=== PATIENT | female | born 1945 | race Caucasian/White ===

== ENCOUNTER 2016-07-31 17:33 | Emergency (ER) | payer MEDICARE ==
[2016-07-31 15:31] LABS: BASOPHILS 0.5 %; BASOPHILS ABSOLUTE 0.03 10/3/uL (0.0-0.16); EOSINOPHILS 2.8 %; EOSINOPHILS ABSOLUTE 0.18 10/3/uL (0.0-0.53); ER CBC TAT 0 Hrs 09 Mins; HEMATOCRIT 39.4 % (36.0-48.0); HEMOGLOBIN 13.2 g/dL (12.0-16.0); IMMATURE GRANULOCYTES 0.2 %; IMMATURE GRANULOCYTES ABSOLUTE 0.01 10/3/uL (0.0-0.11); LYMPHOCYTES 8.2 %; LYMPHOCYTES ABSOLUTE 0.53 10/3/uL (0.67-4.30); MANUAL DIFF NO %; MEAN CORPUS HGB CONC 33.5 g/dL (32.0-36.0); MEAN CORPUSCULAR HEMOGLOB 29.3 pg (26.0-34.0); MEAN CORPUSCULAR VOLUME 87.4 fL (80-100); MEAN PLATELET VOLUME 10.8 fL (9.2-13.0); MONOCYTES 9.3 %; NEUTROPHILS ABSOLUTE 5.13 10/3/uL (2.02-8.40); PLATELET COUNT 133 10/3/uL (150-400); RBC DISTRIBUTION WIDTH 16.8 % (12.0-16.0); RED CELL COUNT 4.51 10/6/uL (4.0-5.6); WHITE BLOOD CELLS 6.5 10/3/uL (4.5-10.5)
[2016-07-31 15:38] LABS: INTERNATIONAL NORMAL RATI 1.2 UNITS (-); PARTIAL THROMBO TIME 35.6 SEC (22.5-37.2)
[2016-07-31 15:44] LABS: PROTIME (NOT ORD) 15.2 SEC (12.0-14.5)
[2016-07-31 15:46] LABS: BUN (BLOOD UREA NITROGEN) 32 MG/DL (6-23); CALCIUM, SERUM 9.6 MG/DL (8.5-10.4); CHEST PAIN PROFILE TAT 0 Hrs 24 Mins; CHLORIDE, SERUM 101 MMOL/L (96-112); CO2 (CARBON DIOXIDE) 29 MMOL/L (24-34); CREATININE 1.77 MG/DL (0.55-1.02); GFR AFRICAN AMERICAN 32 ML/MIN (>=60); GFR NON AFRICAN AMERICAN 28 ML/MIN (>=60); GLUCOSE, SERUM 123 MG/DL (60-99); POTASSIUM, SERUM 4.2 MMOL/L (3.5-5.3); SODIUM, SERUM 138 MMOL/L (135-148); TROPONIN I 0.07 NG/ML (<0.05)
[~2016-07-31 17:33] MED LIST: ALTA5 PO; ASAB PO; ATV.5 PO; BUM1 PO; C5 PO; CALTRA600D PO; CENTRUM PO; CENTRUM TAB1 TAB PO; COREG12 PO; COREG25 PO; KLOR-CON M2020 MEQ PO; L40 PO; LIPITOR80 MG PO; LISINOPRIL40 MG PO; NITROQUICK0.4 MG SL; NORV10 PO; NORV5 PO; SPIRO25 PO; TOPXL50 PO; VICODINTAB PO
[2016-11-13] MEDS ORDERED: ELIQUIS 5 MG TAB5 MG PO (14:50)
[2016-11-13] MEDS ORDERED: LIPITOR80 MG PO (14:52)
[2016-11-13] MEDS ORDERED: ISORDIL20 PO (14:53)
[2016-11-13] MEDS ORDERED: Z100 PO (14:53)
[2016-11-13] MEDS ORDERED: SACU1TAB PO (14:53)
[2016-11-13] MEDS ORDERED: SPIRO25 PO (14:54)
[2016-11-13] MEDS ORDERED: DEMA20 PO (14:54)
[2016-11-13] MEDS ORDERED: COREG25 PO (14:54)
[2016-11-13] MEDS ORDERED: ASAB PO (14:55)
[2016-11-13] MEDS ORDERED: APRES25 PO (14:55)
[2016-11-13] MEDS ORDERED: T PO (14:58)
[2016-11-13] MEDS ORDERED: NITROQUICK0.4 MG SL (14:59)
[2016-11-17] MEDS ORDERED: SPIRO25 PO (15:31)
== END 2016-07-31 17:38 | disposition home or self-care (01) ==
LOC: ER 17:33
PROVIDERS: Emergency Medicine
DX: I13.0 Hypertensive heart and chronic kidney disease with heart failure and stage 1 through stage 4 chronic kidney disease, or unspecified chronic kidney disease (principal); I50.9 Heart failure, unspecified; N18.9 Chronic kidney disease, unspecified; Z95.810 Presence of automatic (implantable) cardiac defibrillator; Z95.1 Presence of aortocoronary bypass graft; Z87.891 Personal history of nicotine dependence; Z79.82 Long term (current) use of aspirin; Z79.01 Long term (current) use of anticoagulants; Z79.891 Long term (current) use of opiate analgesic; Z79.899 Other long term (current) drug therapy
CPT/HCPCS: 71020; 80048; 83735; 83880; 84484; 85025; 85610; 85730; 93005; 96374; 99285

== ENCOUNTER 2016-08-06 22:27 | Inpatient (IN) | payer MEDICARE ==
--- NOTE | ~2016-08-06 | CN ---
Consultation Report [facility] [address] [place]. [address] NAME: JUNIOR SIMMONS : 41 STATUS : ADM IN PAT#: [id number] AGE: 71 ADM/REG DATE : 08/07/16 MR#: [id number] REPORT SERV DATE: 08/07/16 DICTATED BY: NEEL AGUILERA DATE: 08/07/16 REPORT STATUS : Draft TRANSCRIBED BY: MODL DATE: 08/07/16 DATE OF CONSULTATION: 08/07/2016 REASON FOR CONSULTATION: Acute kidney injury on chronic kidney disease stage 3. HISTORY OF PRESENT ILLNESS: This is a very pleasant 71-year-old female patient, followed in our office by Dr. Scar Jaimes. Baseline creatinine appears to be approximately 1.5 to 1.8 with most recent followup on 07/11/2016 with creatinine at that point at 1.8 with a GFR of 30 mL/minute. She is admitted to the Hospitalist Service with a complaint of exacerbation of CHF with an LVEF of 20%-25% and acute exacerbation of CHF. We were asked to evaluate the patient in light of an acute kidney injury on chronic kidney disease with creatinine today at 1.94 with a peak at 2.14 on entry. The patient is sitting at bedside this afternoon. Family is present during evaluation. She denies current chest pain, is noticeably short of breath during conversation, but not overtly tachypneic. Denies chest pain. No nausea, vomiting, or diarrhea. PAST MEDICAL HISTORY: Positive for chronic kidney disease stage 3, baseline creatinine 1.5 to 1.8, followed by Dr. Scar Jaimes. Last creatinine on 07/11/2016 at 1.8. GFR 30 mL/minutes with a [id number] ratio at 1.179 g. History is also positive for chronic systolic and diastolic congestive heart failure with ejection fraction of 20%-25% noted from 2013, coronary artery disease with prior CABG, AICD, biventricular pacemaker insertion, chronic kidney disease as above, hypertension, hyperlipidemia, peripheral artery disease, status post presumed femoral-popliteal bypass by Dr. Everett, mitral valve regurgitation, status post bioprosthetic valve and valvular replacement. PAST SURGICAL HISTORY: Includes CABG, mitral valve replacement, Maze procedure, AICD procedure, and femoral-popliteal bypass. ALLERGIES: SHE LISTS NO KNOWN DRUG ALLERGIES. ACTIVE HOME MEDICATIONS: Include the following: Allopurinol 300 mg p.o. daily, Norvasc 10 mg p.o. daily, Lipitor 80 mg p.o. at bedtime, Coreg 25 mg p.o. b.i.d., Devika 180 mg p.o. daily, Lasix 40 mg daily, spironolactone 25 mg daily. SOCIAL HISTORY: No ETOH. No illicit drugs. Remote history of tobacco use. FAMILY HISTORY: Noncontributory and not reviewed during this consultation and dictation. PHYSICAL EXAMINATION: VITAL SIGNS: Blood pressure 102/58, temperature 97.1, respiratory rate is 16, 82 beats per minute and regular heart rate. GENERAL: She is awake, alert, oriented x3, in no acute distress. HEENT: Normocephalic and atraumatic. Normal ocular movements. No scleral icterus or conjunctival pallor is appreciated. NECK: Supple without thyromegaly. No JVD or mass. Consultation Report [address] [place]. [address] NAME: JUNIOR SIMMONS : 41 STATUS : ADM IN [facility]#: [id number] AGE: 71 ADM/REG DATE : 08/07/16 MR#: [id number] REPORT SERV DATE: 08/07/16 DICTATED BY: NEEL AGUILERA DATE: 08/07/16 REPORT STATUS : Draft TRANSCRIBED BY: MELODY DATE: 08/07/16 CHEST: Positive S1 and S2. No rubs or gallops. LUNGS: Diminished throughout, normal expansion and effort bilaterally without rhonchi or wheezes noted on examination. GI: Positive bowel sounds in all four quadrants. No appreciable mass or tenderness. : Examination is deferred. EXTREMITIES: Positive pulses to all four extremities. Noted 2+ bilateral lower extremity edema. On examination, she has pulses to all four extremities, they are intact. NEUROLOGIC: She appears to be grossly intact. Nonfocal. SKIN: Warm, dry, and intact to visualized surfaces. No rash, lesions, or ecchymosis. PSYCH: She appears to be appropriate with mood and affect. LABORATORY DATA: Pertinent laboratories and imaging to this evaluation are as follows: Sodium 139, potassium 4.0, chloride 104, CO2 of 28, BUN 47, creatinine 1.94. Reflected GFR 25 mL/minute. Glucose of 99. Calcium 9.1. CPK 104, CK-MB 2.2. Troponin 0.08. White blood cell count of 6.9, RBC 4.27, hemoglobin 12.2, hematocrit 37.2, platelets at 123. Most recent B-natriuretic peptide 0.1. Most recent pro-time INR are 16.3, 1.3. Chest PA and lateral shows a stable chest x-ray. Lung magallanes are hyperaerated consistent with COPD, small pleural effusion with blunting of the right costophrenic angle, and bilateral apical thickening. Bones are osteopenic. IMPRESSION AND PLAN: This is a chronic kidney disease stage 3 patient, acute exacerbation of congestive heart failure with questionable component of exacerbation of chronic obstructive pulmonary disease, not maintained on home oxygen supplementation with smoking history as listed above. She does have an elevated B-natriuretic peptide and has been diuresed and shows some improvement in her respiratory status since admission. She continues to have significant lower extremity edema on evaluation today. There are plans to progress her to torsemide 40 mg p.o. in the a.m. according to Cardiology's current plan of care. Considering her continued lower extremity edema, would provide further diuresis with IV Bumex this evening with efforts in place to place her on p.o. torsemide with p.o. Aldactone in the morning. Considering the bilateral lower extremity edema being significant and acute, would rule out DVT to bilateral lower extremities. Fluid and sodium restrictions are in place. The patient states that she is normally adherent to this at home, but has had some difficulty with fluid restriction of late as she is often in her garden outdoors. There is some thought that she may possibly benefit from addition of ARB, but she does have a unilateral kidney and I would be hesitant to use this as adjunctive therapy considering her unilateral kidney and noted chronic kidney disease stage 3. Would test her oxygen level without oxygen supplementation as she may benefit currently from home oxygen supplementation and this may be at some level a concomitant exacerbation of chronic obstructive pulmonary disease with her exacerbation of congestive heart failure in favor of place her on torsemide tomorrow. Lasix dosing appears at this point to be ineffective. We will quantify her urinary protein excretion and place her on strict Is and Os. It is unclear at this point how accurate her Is and Os have been. Creatinine at 1.9 is near her previous baseline and she will likely show a fluctuating creatinine based on her diuretic burden. Further modification of treatment plan may be made based on clinical presentation, patient laboratory results, further consultation with renal attending. We appreciate consultation. Consultation Report [facility] [address] [place]. [address] NAME: JUNIOR SIMMONS : 41 STATUS : ADM IN PAT#: [id number] AGE: 71 ADM/REG DATE : 08/07/16 MR#: [id number] REPORT SERV DATE: 08/07/16 DICTATED BY: NEEL AGUILERA. DATE: 08/07/16 REPORT STATUS : Draft TRANSCRIBED BY: MELODY DATE: 08/07/16 We are glad to follow this patient with you. DICTATED BY: Martinez Manzano NP JR/MELODY Neel Aguilera M.D. / [id number] CC: Marissa Jimenez M.D.
--- NOTE | ~2016-08-06 | HP ---
History And Physical [facility] [address] [place]. [address] NAME: JUNIOR HALL : 41 STATUS : ADM IN PAT#: [id number] AGE: 71 ADM/REG DATE : 08/07/16 MR#: [id number] REPORT SERV DATE: 08/07/16 DICTATED BY: TITI ORONA DATE: 08/07/16 REPORT STATUS : Draft TRANSCRIBED BY: MODL DATE: 08/07/16 DATE OF ADMISSION: 08/06/2016 POINT OF ENTRY: [facility] Emergency Department. PRIMARY CARE PHYSICIAN: Jose Cruz Cobb M.D. PRIMARY CIVIL TRANSPORTATION ENGINEER: Tio Watkins M.D., [facility], [facility]. PRIMARY INVENTORY CONTROL ASSISTANT: Dr. Jaimes. CHIEF COMPLAINT: Lower extremity edema and shortness of breath. HISTORY OF PRESENT ILLNESS: Ms Hall is a 71-year-old female with a history of chronic systolic congestive heart failure with ejection fraction of 20-25%, chronic kidney disease stage 3, hypertension, hyperlipidemia, and peripheral arterial disease, who presents to the emergency department with reports of progressive worsening lower extremity edema. The patient was seen in our ER on 07/31/2016 for similar complaints of shortness of breath, primarily lower extremity edema. At that time, her BNP level was noted to be elevated at 1980. Chest x-ray was fairly clear. She was given an unknown dose of IV Lasix and discharged to home with instructions to double up her Lasix from 40 mg daily to a total of 80 mg daily for five days and then to decrease it down to 60 mg daily until she follows up with her primary stereoplotter operator, Dr. Watkins. The patient states she has been compliant with five-day pulse dose of Lasix, which she has been taking actually 40 mg b.i.d. She just switched to 60 mg daily yesterday. She does state that she avoid salt; however, based on description for fluid intake it appears that she is taking in at least 2 L of fluid daily. Despite the increase in Lasix the patient reports that she has continued to have worsening lower extremity edema, now spreading up to her proximal lower extremities and into her lower abdomen. She was weighing herself on a daily basis however, with this recent fluid build up she has actually stopped weighing herself, but does estimates that she has gained approximately 6-8 pounds over the past week despite the increase in Lasix dosing. She denies any recent fevers, night sweats, chills, chest pain, palpitations, cough, sputum production, abdominal pain, nausea, vomiting, diarrhea, constipation, dysuria, melena, hematochezia, or hemoptysis. Initial evaluation in the emergency room is notable for chest x-ray that is largely unchanged from one week ago. BNP is elevated at 2050; however, creatinine and BUN have increased from 32 and 1.77 to 50 and 2.14. She subsequently was admitted to the Hospitalist Service for further evaluation and management. REVIEW OF SYSTEMS: Comprehensive review of system otherwise negative unless listed in history of present History And Physical [address] [address] NAME: JUNIOR HALL : 41 STATUS : ADM IN PAT#: [id number] AGE: 71 ADM/REG DATE : 08/07/16 MR#: [id number] REPORT SERV DATE: 08/07/16 DICTATED BY: TITI ORONA DATE: 08/07/16 REPORT STATUS : Draft TRANSCRIBED BY: MELODY DATE: 08/07/16 illness. PREVIOUS MEDICAL HISTORY: 1. Chronic systolic and diastolic congestive heart failure with ejection fraction of 20- 25% from 2013. 2. Coronary artery disease with prior coronary artery bypass grafting. 3. AICD BiV pacemaker insertion. 4. Chronic kidney disease stage 3, baseline creatinine approximately 1.7 to 1.19. 5. Hypertension. 6. Hyperlipidemia. 7. Peripheral artery disease status post presumed femoral/popliteal bypass by Dr. Everett. 8. Mitral valve regurgitation status post bioprosthetic mitral valve replacement. SURGICAL HISTORY: 1. CABG. 2. Bioprosthetic mitral valve replacement. 3. MAZE procedure. 4. AICD pacemaker. 5. Femoral-popliteal bypass. ALLERGIES: NO KNOWN DRUG ALLERGIES. HOME MEDICATIONS: Pending at the time of dictation. SOCIAL HISTORY: She is a former smoker, quit about 15 years ago. Denies alcohol or illicits. FAMILY HISTORY: Mother with leukemia. Father with complications of a gunshot wound. Siblings with history of coronary artery disease. Also extensive history of coronary artery disease in her extended family members. LABS AND IMAGIN. White count is 6.9, hemoglobin is 12.5, hematocrit is 36.9, platelet count is 131, and INR 1.3. 2. Sodium is 140, potassium 3.8, chloride 104, carbon dioxide 29, BUN 50, creatinine 2.14, glucose is 155, calcium is 9.4, and magnesium is 2.5. 3. Troponin is 0.07. BNP is 2050. 4. EKG per my review shows a BiV-paced rhythm with no evidence of any acute ischemia or infarction. 5. Chest x-ray per my review shows cardiomegaly with a small right pleural effusion as well as presence of BiV pacemaker with some very mild intravascular volume overload. PHYSICAL EXAMINATION: VITAL SIGNS: Temperature is 97.4 degrees Fahrenheit, pulse is 81, respirations 18, saturating 93% on room air, and blood pressure 130/70. On recheck, blood pressure now 137/75, pulse of 80, and saturating 96% on 2 L by nasal cannula. GENERAL: The patient is awake and alert, in no acute distress. Resting comfortably in bed. History And Physical [address] [address] NAME: JUNIOR HALL : 41 STATUS : ADM IN [facility]#: [id number] AGE: 71 ADM/REG DATE : 08/07/16 MR#: [id number] REPORT SERV DATE: 08/07/16 DICTATED BY: TITI ORONA DATE: 08/07/16 REPORT STATUS : Draft TRANSCRIBED BY: MELODY DATE: 08/07/16 She is a well-developed, well-nourished, elderly female. Family is at bedside. HEENT: Atraumatic and normocephalic. Moist mucous membranes. Pupils are equal, round, reactive to light and accommodation. Extraocular eye movements intact. No scleral icterus. NECK: Positive jugular venous distention with very prominent V-waves, but no carotid bruits. CARDIAC: Regular rate and rhythm with 2/6 systolic murmur heard best over the right lower sternal border. LUNGS: Clear to auscultation bilaterally with some decreased breath sounds in the bases and prolonged respiratory phase as well as very mild inspiratory rales at bilateral bases. ABDOMEN: Soft, nontender, and nondistended. Good bowel sounds. No rebound, guarding, or rigidity. EXTREMITIES: Warm and perfused with 2 to 3+ pitting lower extremity edema bilaterally. SKIN: Warm and dry. PSYCH: Affect appropriate. NEURO: Alert and oriented x3. Cranial nerves 2 through 12 grossly intact. Speech is normal. Gait not assessed. ASSESSMENT AND PLAN: Ms Hall is a 71-year-old female, who presents with progressive worsening lower extremity edema, swelling, and weight gain despite use of increased dose of diuretics over the past six days. PROBLEM LIST: 1. Acute on chronic systolic and diastolic congestive heart failure. 2. Acute kidney injury on chronic kidney disease, stage 3. 3. Anasarca. 4. Elevated troponin level. 5. History of coronary artery disease. PLAN: 1. Acute on chronic systolic and diastolic congestive heart failure. We will admit the patient to the Hospitalist Service. Place her on IV Bumex q.8 hours for the first 24 hours to see if this will help with diuresis, place the patient on sodium and fluid restriction. We will consult the patient's primary stereoplotter operator, as well as primary director community organization for assistance with diuresis and at the same event for heart failure and CKD. We will repeat an echocardiogram given her last echocardiogram her was in 2013. 2. Acute kidney injury on chronic kidney disease, stage 3. Suspect is likely due to either increase dose of her diuretics versus cardiorenal syndrome given continued worsening edema and weight gain. Consult the patient's primary director community organization for assistance. Avoid nephrotoxic medications. 3. Anasarca likely secondary for her CHF and CKD; however, we will check a hepatic function panel to evaluate her albumin levels. 4. Elevated troponin level. She denies chest pain. EKG is nonischemic likely secondary to Acute on chronic systolic and diastolic congestive heart failure, and acute kidney injury on chronic kidney disease stage 3. We will trend these out overnight. We will place the patient on an aspirin. Recheck an EKG in the morning. 5. DVT prophylaxis. Heparin subcu. CODE STATUS: The patient wished to be full code. History And Physical [address] [place]. [address] NAME: JUNIOR HALL : 41 STATUS : ADM IN [facility]#: [id number] AGE: 71 ADM/REG DATE : 08/07/16 MR#: [id number] REPORT SERV DATE: 08/07/16 DICTATED BY: TITI ORONA DATE: 08/07/16 REPORT STATUS : Draft TRANSCRIBED BY: MODL DATE: 08/07/16 HUGO/MELODY Titi Orona MD / [id number] CC: Marissa Gutierrez III, M.D., [facility], [facility]
--- NOTE | ~2016-08-06 | CN ---
Consultation Report [facility] [address] [place]. [address] NAME: JUNIOR HALL : 41 STATUS : ADM IN PAT#: [id number] AGE: 71 ADM/REG DATE : 08/07/16 MR#: [id number] REPORT SERV DATE: 08/08/16 DICTATED BY: HUAN WATKINS III DATE: 08/08/16 REPORT STATUS : Draft TRANSCRIBED BY: MODGustavo DATE: 08/08/16 DATE OF CONSULTATION: 08/07/2016 HISTORY OF PRESENT ILLNESS: Ms. Junior Hall is a 71-year-old white female referred for evaluation of congestive heart failure. The patient had been in her usual state of health until 12/1999. At that time, the patient presented to [facility] with an acute inferoposterior myocardial infarction with right ventricular extension. The patient was treated with intravenous TNK. The patient was subsequent transferred to [facility]. The patient underwent cardiac catheterization on 01/13/2000. Left ventriculography demonstrated apical hypokinesis, diaphragmatic hypokinesis, and posterobasal profound hypokinesis. Global left ventricular systolic function was moderately reduced. Selective coronary angiography demonstrated significant three-vessel coronary artery disease, involving the faf-vo-bolcjp portion of the left anterior descending, proximal portion of the left circumflex, and proximal portion of the dominant right coronary arteries. The patient underwent five-vessel coronary artery bypass graft surgery. The left internal mammary artery was grafted to the left anterior descending coronary artery. Reverse saphenous vein grafts were placed to the first major diagonal branch, first obtuse marginal branch, posterior descending coronary artery, and posterior left ventricular branch. The patient's postoperative course was complicated by respiratory failure and paroxysmal ventricular tachycardia. The patient was subsequently discharged in good condition. The patient did well until 2012. At that time, the patient presented with dyspnea. An exercise dual-isotope scintigram performed on 03/27/2012 demonstrated basal anterolateral, mid anterolateral, and apical septal defects. Gated SPECT images demonstrated basal anterolateral, mid anterolateral, and apical septal akinesis. The calculated global left ventricular ejection fraction was less than 30%. A 2D and Doppler echocardiogram performed on 05/01/2012 demonstrated findings consistent with a dilated multi infarct cardiomyopathy with a severe reduction in global left ventricular systolic function, posterior mitral annular calcification, eccentric (esyllloi-za-plmpou) mitral regurgitation, mild tricuspid regurgitation, and pulmonary regurgitation. On 05/07/2012, the patient underwent cardiac catheterization. Left ventriculography demonstrated apical akinesis to dyskinesis, diaphragmatic profound hypokinesis to akinesis, and posterobasal profound hypokinesis. Global left ventricular systolic function was severely reduced. There was moderate mitral regurgitation. Selective coronary angiography demonstrated significant three-vessel coronary artery disease, involving the proximal portion of the left anterior descending, proximal portion of the left circumflex, and proximal portion of the right coronary arteries. The saphenous vein graft to the second obtuse marginal branch of the left circumflex coronary artery was patent. The bifurcated saphenous vein graft to the posterior descending coronary artery and second posterior left ventricular branch of the right coronary artery was patent. The saphenous vein graft to the second major diagonal branch of the left anterior descending coronary artery was patent. The left internal mammary artery graft to the distal portion of the left anterior descending coronary artery was patent. On 05/13/2012, the patient underwent implantation of a dual-chamber biventricular ICD. On 12/30/2012, the patient underwent mitral valve replacement with a 25 mm Magna pericardial prosthesis. On 12/22/2015, the patient underwent a 2D and Doppler echocardiogram. That study demonstrated findings consistent with a dilated multi-infarct Consultation Report [place] [id number] [facility] [place]. [address] NAME: JUNIOR HALL : 43 STATUS : ADM IN [facility]#: [id number] AGE: 71 ADM/REG DATE : 08/07/16 MR#: [id number] REPORT SERV DATE: 08/08/16 DICTATED BY: HUAN WATKINS III DATE: 08/08/16 REPORT STATUS : Draft TRANSCRIBED BY: MELODY DATE: 08/08/16 cardiomyopathy with a severe reduction in global left ventricular systolic function, restrictive left ventricular diastolic dysfunction, decreased right ventricular systolic function, aortic sclerosis, brmq-er-gjckklqb tricuspid regurgitation, normally functioning mitral valve prosthesis, and mild pulmonary hypertension. On 12/29/2015, the patient underwent an intravenous regadenoson dual-isotope scintigram. Myocardial perfusion imaging demonstrated a fixed basal inferolateral, mid inferolateral, and apical defect. Gated SPECT images demonstrated global hypokinesis to akinesis. The calculated global left ventricular ejection fraction was in the range of 20% to 25%. The patient did well until approximately two weeks prior to this admission. At that time, the patient noted onset of progressive dyspnea on exertion, orthopnea, bilateral pedal edema, and weight gain. The patient was subsequently seen in the [facility] Emergency Room. The patient's furosemide was increased from 40 mg to 80 mg p.o. daily. The patient initially improved, but returned to the emergency room on 08/06/2016. The patient's oxygen saturation on room air was 93%. A chest radiograph demonstrated cardiomegaly with evidence of pulmonary vascular congestion. A 12-lead electrocardiogram demonstrated 100% biventricular pacing. The patient's troponin I level was 0.07. The patient's B-type natriuretic peptide level was 2050.1 pg/mL. The patient's serum creatinine level was 2.14. The patient was subsequently admitted and referred for cardiovascular evaluation. The patient denied chest pain, palpitations, syncope, hip claudication, or lower extremity claudication. The patient has no history of rheumatic fever. The patient's documented coronary artery disease risk factors include family history, hyperlipoproteinemia, hypertension, peripheral arterial disease, tobacco abuse, and an elevated fibrinogen level. PAST MEDICAL HISTORY: 1. Hyperlipoproteinemia. 2. Hypertension. 3. Peripheral arterial disease. 4. Stage III chronic kidney disease with a solitary left renal functioning kidney and an atrophic right kidney of unknown etiology. 5. Chronic obstructive pulmonary disease. OPERATIVE PROCEDURES: 1. Status post five-vessel coronary artery bypass graft surgery, 01/13/2000. 2. Status post right carpal tunnel release. 3. Status post mitral valve replacement with a 25 mm Magna pericardial prosthesis and a left atrial MAZE. 4. Status post kvjkcph-qa-kypnhar bypass. ALLERGIES: NONE. MEDICATIONS: 1. Allopurinol 300 mg p.o. daily. 2. Amlodipine 10 mg p.o. daily. 3. Atorvastatin 80 mg p.o. at bedtime. Consultation Report [place] [id number] [facility] [place]. [address] NAME: JUNIOR HALL : 43 STATUS : ADM IN [facility]#: [id number] AGE: 71 ADM/REG DATE : 08/07/16 MR#: [id number] REPORT SERV DATE: 08/08/16 DICTATED BY: HUAN WATKINS III DATE: 08/08/16 REPORT STATUS : Draft TRANSCRIBED BY: MELODY DATE: 08/08/16 4. Carvedilol 25 mg p.o. b.i.d. 5. Fexofenadine 180 mg p.o. daily. 6. Furosemide 40 mg p.o. daily. 7. Spironolactone 25 mg p.o. at bedtime. 8. Nitroglycerin 0.4 mg sublingual, p.r.n. chest pain. 9. Aspirin 81 mg p.o. q.a.m. FAMILY HISTORY: Positive for stroke, leukemia, myocardial infarction, kidney disease, arthritis, and mental illness. Negative for hypertension, seizures, diabetes mellitus, liver disease, and anemia. SOCIAL HISTORY: The patient denied any history of alcohol use. The patient smoked approximately one pack per day for 48 years. PHYSICAL EXAMINATION: GENERAL: Demonstrated an alert, older white female, in no acute distress. VITAL SIGNS: Demonstrated a temperature of 97.8 orally, respiratory rate of 16 breaths per minute, and a blood pressure of 122/68 mmHg with a heart rate of 81 beats per minute. SKIN: Warm and dry. There were multiple well-healed surgical scars. NECK: Supple and nontender. There was decreased range of motion. There was no appreciable lymphadenopathy or thyromegaly. There was no jugular venous distention at 90 degrees. There were no carotid bruits. CHEST: Examination of the chest demonstrated bilateral inspiratory crackles extending one- half the way up the posterior lung magallanes. There were no rhonchi, wheezes, or pleural rubs. There was symmetrical expansion of the chest. CARDIAC: Demonstrated a nonpalpable apical impulse. There was a regular rhythm and rate with a grade III/ systolic crescendo-decrescendo murmur heard best at the right upper sternal border and left sternal border. There was no appreciable diastolic murmur, rub, or mid systolic click. There were no thrills or heaves. ABDOMEN: Examination of the abdomen demonstrated that it was mildly obese, soft, and protuberant. There was no appreciable hepatosplenomegaly or masses. Bowel sounds were intact. EXTREMITIES: Examination of the extremities demonstrated that they were symmetrical. There was decreased range of motion. There was 2 to 3+ pitting bilateral pedal edema extending one-half the way up to the knees. There was no cyanosis or clubbing. ASSESSMENT: Ms. Junior Hall is a 71-year-old white female with six other risk factors for coronary atherosclerotic disease (i.e., family history, hyperlipoproteinemia, hypertension, peripheral arterial disease, tobacco abuse, and elevated fibrinogen level), status post inferoposterior myocardial infarction with right ventricular extension (01/12/2000), known three-vessel coronary artery disease (involving the proximal portion of the left anterior descending, proximal portion of the left circumflex, and proximal portion of the right coronary arteries), status post five-vessel coronary artery bypass graft surgery (01/13/2000), history of paroxysmal atrial tachycardia, status post implantation of a dual-chamber biventricular ICD (05/13/2012), status post mitral valve replacement with a Consultation Report [address] [place]. [address] NAME: JUNIOR HALL : 41 STATUS : ADM IN PAT#: [id number] AGE: 71 ADM/REG DATE : 08/07/16 MR#: [id number] REPORT SERV DATE: 08/08/16 DICTATED BY: HUAN WATKINS III DATE: 08/08/16 REPORT STATUS : Draft TRANSCRIBED BY: MELODY DATE: 08/08/16 25 mm Magna pericardial prosthesis with a left atrial MAZE (12/30/2012) and a history of congestive heart failure secondary to a dilated multi-infarct cardiomyopathy with a severe reduction in global left ventricular systolic function/restrictive left ventricular diastolic dysfunction. The patient now presents with [place] [employer] class III congestive heart failure secondary to cardiorenal syndrome. I agree with the echocardiogram. I would also recommend a stress PET scan. I agree with the addition of isosorbide dinitrate/hydralazine. I would recommend changing the patient's furosemide to torsemide. I will discuss the addition of sacubitril/valsartan with Nephrology. Further recommendations to follow. It has been a pleasure participating in the care of your patient. JERMAINE/MELODY Huan Watkins III, M.D., [facility], [facility] / [id number] CC: MD Jose Cruz Coon M.D.
--- NOTE | ~2016-08-06 | DS ---
Discharge Summary [facility] [address] [facility] [place]. [address] NAME: JUNIOR HALL : 41 STATUS : DIS IN PAT#: [id number] AGE: 71 ADM/REG DATE : 08/07/16 MR#: [id number] REPORT SERV DATE: 08/12/16 DICTATED BY: YOSELIN MAX DATE: 08/11/16 REPORT STATUS : Draft TRANSCRIBED BY: MODL DATE: 08/11/16 ADMISSION DATE: 08/07/2016 DISCHARGE DATE: 08/11/2016 Ms Hall is a 71-year-old female with a history of heart failure with reduced EF, dilated cardiomyopathy, hypertension, hyperlipidemia, CKD, who presented to the hospital with a complaint of lower extremity edema and shortness of breath. For further details please refer to H and P dictated by Dr. Saenz on 08/07/2016. HOSPITAL COURSE: Upon presentation to the hospital, the patient was diagnosed with CHF exacerbation. The patient was admitted under Hospitalist Service for further management. Cardiology and Nephrology were consulted to assist in management. Per Cardiology evaluation, the patient was diagnosed with cardiorenal syndrome and medications were optimized. Given her CKD, Nephrology was also consulted. For further details please refer to consultation note by Dr. Watkins on 08/07/2016, also refer to Nephrology note by Dr. Aguilera on 08/07/2016. From Nephrology standpoint, the patient's diuretic was switched to torsemide. On presentation, the patient was severely volume overloaded with edema up to her thighs, status post any adjustment in diuretic therapy the patient progressively improved. From a Cardiology standpoint given that the patient was diagnosed with cardiorenal syndrome, the patient was started on appropriate medications. Cardiology wanted to start Entresto for management of the cardiorenal syndrome; however, Nephrology was hesitant given the patient has a solitary kidney and due to concern of worsening kidney function on this new medication. The operations asst who was covering the patient in the hospital deferred the decision to the outpatient operations asst to decide whether to start Entresto or not. From Cardiology standpoint, given the patient has cardiorenal syndrome it was imperative to start the patient on Entresto and have the patient evaluate in-house to determine if the patient will be able to tolerate it. Given that Entresto has not been started secondary to Nephrology not wanting to start it. Given that Entresto has not been started in-house to monitor if the patient could tolerate above medication, it is likely that the patient may be readmitted with the same complaint. However, the patient has been cleared from Cardiology standpoint for discharge. The patient has also been cleared from a Nephrology standpoint for discharge. She will follow with primary and operations asst as outpatient to determine when and if to initiate Entresto. Given clearance by subspecialty, given her hemodynamic stability, and given her progressive improvement in her fluid status, the patient will be discharged home and optimize medications to follow up with her primary care physician and Nephrology as outpatient. Plan has been discussed with the patient, who voices understanding and is agreeable with this plan. DISCHARGE DIAGNOSES: 1. Heart failure with reduced ejection fraction. 2. Dilated cardiomyopathy. 3. Cardiorenal syndrome. 4. Acute kidney injury. 5. Chronic kidney disease, stage 3. 6. Hypertension. 7. Hyperlipidemia. Discharge Summary [address] [address] NAME: JUNIOR HALL : 41 STATUS : DIS IN PAT#: [id number] AGE: 71 ADM/REG DATE : 08/07/16 MR#: [id number] REPORT SERV DATE: 08/12/16 DICTATED BY: YOSELIN MAX DATE: 08/11/16 REPORT STATUS : Draft TRANSCRIBED BY: MELODY DATE: 08/11/16 DISCHARGE PHYSICAL EXAMINATION: VITAL SIGNS: Blood pressure 120/63 with a pulse of 80, respirations 16, and O2 saturation 94% on 2 L. GENERAL: The patient sitting in bed, appears stated age. Speaking in full sentences, in no acute distress. HEENT: Normocephalic and atraumatic. Extraocular motors intact. Moist oral mucosa. NECK: Trachea midline and symmetric. No JVD noted. No thyromegaly present. CARDIO/CHEST: Nontender to palpation. A well-healed sternotomy scar noted. CARDIOVASCULAR: The patient had a 2/3 systolic murmur noted in the precordium; however, she did have regular rate and rhythm. ABDOMEN: Positive bowel sounds. Nontender. Nondistended. No masses palpated. LUNGS: Clear to auscultation bilaterally. EXTREMITIES: No cyanosis, no clubbing, no edema. NEUROLOGIC: Alert and oriented x3. No focal deficits appreciated. DISCHARGE MEDICATIONS: 1. Allopurinol 300 mg p.o. daily. 2. Aspirin 81 mg p.o. daily. 3. Atorvastatin 80 mg p.o. at bedtime. 4. Carvedilol 25 mg p.o. twice a day. 5. BiDil 20/37.5 mg tablet, take one tablet p.o. three times daily. 6. Devika 180 mg p.o. daily. 7. Spironolactone 25 mg p.o. at bedtime. 8. Torsemide 40 mg p.o. daily. IMAGING: Please refer to JAY report 08/07/2016. Please refer to PET myocardial multiple study of 08/08/2016. Please refer to venous Doppler lower extremity on 08/07/2016. DISPOSITION: The patient will be discharged home. ACTIVITY: As tolerated. DIET: Cardiac diet. Greater than 30 minutes were spent coordinating care, planning discharge, dictation of note, medication reconciliation, writing prescription, providing counseling, also discussion of case with consultants. DICTATED BY: MD PEGGY Coon/MELODY Yoselin Max MD Discharge Summary [address] [address] NAME: JUNIOR HALL : 41 STATUS : DIS IN PAT#: [id number] AGE: 71 ADM/REG DATE : 08/07/16 MR#: [id number] REPORT SERV DATE: 08/12/16 DICTATED BY: YOSELIN MAX DATE: 08/11/16 REPORT STATUS : Draft TRANSCRIBED BY: MODL DATE: 08/11/16 / [id number] CC: MD Jose Cruz Coon M.D.
[2016-08-06 22:50] LABS: BASOPHILS 0.4 %; BASOPHILS ABSOLUTE 0.03 10/3/uL (0.0-0.16); EOSINOPHILS 3.3 %; EOSINOPHILS ABSOLUTE 0.23 10/3/uL (0.0-0.53); ER CBC TAT 0 Hrs 05 Mins; HEMATOCRIT 36.9 % (36.0-48.0); HEMOGLOBIN 12.5 g/dL (12.0-16.0); IMMATURE GRANULOCYTES 0.1 %; IMMATURE GRANULOCYTES ABSOLUTE 0.01 10/3/uL (0.0-0.11); LYMPHOCYTES 7.5 %; LYMPHOCYTES ABSOLUTE 0.52 10/3/uL (0.67-4.30); MANUAL DIFF NO %; MEAN CORPUS HGB CONC 33.9 g/dL (32.0-36.0); MEAN CORPUSCULAR HEMOGLOB 29.5 pg (26.0-34.0); MEAN PLATELET VOLUME 10.5 fL (9.2-13.0); MONOCYTES 13.6 %; MONOCYTES ABSOLUTE 0.94 10/3/uL (0.21-1.20); NEUTROPHILS 75.1 %; NEUTROPHILS ABSOLUTE 5.17 10/3/uL (2.02-8.40); PLATELET COUNT 131 10/3/uL (150-400); RBC DISTRIBUTION WIDTH 16.7 % (12.0-16.0); RED CELL COUNT 4.24 10/6/uL (4.0-5.6); WHITE BLOOD CELLS 6.9 10/3/uL (4.5-10.5)
[2016-08-06 23:02] LABS: INTERNATIONAL NORMAL RATI 1.3 UNITS (-); PROTIME (NOT ORD) 16.3 SEC (12.0-14.5)
[2016-08-06 23:03] LABS: PARTIAL THROMBO TIME 37.8 SEC (22.5-37.2)
[2016-08-06 23:04] LABS: CALCIUM, SERUM 9.4 MG/DL (8.5-10.4); CHLORIDE, SERUM 104 MMOL/L (96-112); CO2 (CARBON DIOXIDE) 29 MMOL/L (24-34); CREATININE 2.14 MG/DL (0.55-1.02); GFR AFRICAN AMERICAN 26 ML/MIN (>=60); GFR NON AFRICAN AMERICAN 22 ML/MIN (>=60); POTASSIUM, SERUM 3.8 MMOL/L (3.5-5.3); SODIUM, SERUM 140 MMOL/L (135-148)
[2016-08-06 23:09] LABS: BUN (BLOOD UREA NITROGEN) 50 MG/DL (6-23); GLUCOSE, SERUM 155 MG/DL (60-99)
[2016-08-06 23:10] LABS: CHEST PAIN PROFILE TAT 0 Hrs 25 Mins; TROPONIN I 0.07 NG/ML (<0.05)
[2016-08-07] MEDS ORDERED: NORV10 PO (01:00)
[2016-08-07] MEDS ORDERED: COREG25 PO (01:00)
[2016-08-07] MEDS ORDERED: LIPITOR80 MG PO (01:01)
[2016-08-07] MEDS ORDERED: SPIRO25 PO (01:01)
[2016-08-07] MEDS ORDERED: L40 PO (01:01)
[2016-08-07] MEDS ORDERED: ALLEGRA180 PO (01:02)
[2016-08-07] MEDS ORDERED: Z300 PO (01:02)
[2016-08-07 01:07] LABS: DIRECT BILIRUBIN 0.3 MG/DL (0.0-0.4); INDIRECT BILIRUBIN(NOT ORDER) 0.5 MG/DL (0.1-0.9); SGOT(AST) 33 U/L (5-40); SGPT(ALT) 34 U/L (5-65); TOTAL BILIRUBIN 0.8 MG/DL (0-1.2); TOTAL PROTEIN 7.3 G/DL (6.0-8.5)
[2016-08-07 01:08] LABS: ALKALINE PHOSPHATASE 140 U/L (45-117)
[2016-08-07 05:16] LABS: BASOPHILS 0.7 %; BASOPHILS ABSOLUTE 0.05 10/3/uL (0.0-0.16); EOSINOPHILS 2.8 %; EOSINOPHILS ABSOLUTE 0.19 10/3/uL (0.0-0.53); HEMATOCRIT 37.2 % (36.0-48.0); HEMOGLOBIN 12.2 g/dL (12.0-16.0); IMMATURE GRANULOCYTES 0.1 %; IMMATURE GRANULOCYTES ABSOLUTE 0.01 10/3/uL (0.0-0.11); LYMPHOCYTES 9.8 %; LYMPHOCYTES ABSOLUTE 0.67 10/3/uL (0.67-4.30); MEAN CORPUS HGB CONC 32.8 g/dL (32.0-36.0); MEAN CORPUSCULAR HEMOGLOB 28.6 pg (26.0-34.0); MEAN CORPUSCULAR VOLUME 87.1 fL (80-100); MEAN PLATELET VOLUME 10.3 fL (9.2-13.0); MONOCYTES 11.1 %; MONOCYTES ABSOLUTE 0.76 10/3/uL (0.21-1.20); NEUTROPHILS 75.5 %; NEUTROPHILS ABSOLUTE 5.18 10/3/uL (2.02-8.40); PLATELET COUNT 123 10/3/uL (150-400); RED CELL COUNT 4.27 10/6/uL (4.0-5.6); WHITE BLOOD CELLS 6.9 10/3/uL (4.5-10.5)
[2016-08-07 05:20] LABS: MANUAL DIFF NO %
[2016-08-07 05:37] LABS: BUN (BLOOD UREA NITROGEN) 47 MG/DL (6-23); CALCIUM, SERUM 9.1 MG/DL (8.5-10.4); CHLORIDE, SERUM 104 MMOL/L (96-112); CO2 (CARBON DIOXIDE) 28 MMOL/L (24-34); CREATININE 1.94 MG/DL (0.55-1.02); GFR AFRICAN AMERICAN 29 ML/MIN (>=60); GFR NON AFRICAN AMERICAN 25 ML/MIN (>=60); SODIUM, SERUM 139 MMOL/L (135-148)
[2016-08-07 05:46] LABS: CK-MB 2.2 NG/ML; CPK 104 U/L (0-200); GLUCOSE, SERUM 99 MG/DL (60-99); TROPONIN I 0.08 NG/ML (<0.05)
[2016-08-07 14:49] LABS: CPK 99 U/L (0-200)
[2016-08-07 14:51] LABS: CK-MB 1.8 NG/ML; TROPONIN I 0.07 NG/ML (<0.05)
[2016-08-07 18:42] LABS: CREATININE RANDOM UR 68.8 MG/DL; UR PROTEIN/CREAT RATIO 0.33 (< 0.2)
[2016-08-08 05:41] LABS: BASOPHILS 0.6 %; BASOPHILS ABSOLUTE 0.03 10/3/uL (0.0-0.16); EOSINOPHILS 3.9 %; EOSINOPHILS ABSOLUTE 0.21 10/3/uL (0.0-0.53); HEMOGLOBIN 10.9 g/dL (12.0-16.0); IMMATURE GRANULOCYTES 0.2 %; IMMATURE GRANULOCYTES ABSOLUTE 0.01 10/3/uL (0.0-0.11); LYMPHOCYTES 8.6 %; LYMPHOCYTES ABSOLUTE 0.47 10/3/uL (0.67-4.30); MEAN CORPUS HGB CONC 32.9 g/dL (32.0-36.0); MEAN CORPUSCULAR HEMOGLOB 29.3 pg (26.0-34.0); MEAN PLATELET VOLUME 10.4 fL (9.2-13.0); MONOCYTES ABSOLUTE 0.76 10/3/uL (0.21-1.20); NEUTROPHILS 72.7 %; NEUTROPHILS ABSOLUTE 3.96 10/3/uL (2.02-8.40); PLATELET COUNT 126 10/3/uL (150-400); RBC DISTRIBUTION WIDTH 16.8 % (12.0-16.0); RED CELL COUNT 3.72 10/6/uL (4.0-5.6); WHITE BLOOD CELLS 5.4 10/3/uL (4.5-10.5)
[2016-08-08 05:44] LABS: HEMATOCRIT 33.1 % (36.0-48.0); MANUAL DIFF NO %
[2016-08-08 05:52] LABS: ALBUMIN 3.5 G/DL (3.5-5.0); CHLORIDE, SERUM 106 MMOL/L (96-112); CO2 (CARBON DIOXIDE) 28 MMOL/L (24-34); GFR AFRICAN AMERICAN 32 ML/MIN (>=60); GFR NON AFRICAN AMERICAN 27 ML/MIN (>=60); GLUCOSE, SERUM 102 MG/DL (60-99); POTASSIUM, SERUM 4.1 MMOL/L (3.5-5.3); SODIUM, SERUM 140 MMOL/L (135-148)
[2016-08-08 05:55] LABS: BUN (BLOOD UREA NITROGEN) 52 MG/DL (6-23); PHOSPHORUS, SERUM 3.8 MG/DL (2.5-4.5)
[2016-08-09 03:56] LABS: BASOPHILS 0.6 %; BASOPHILS ABSOLUTE 0.03 10/3/uL (0.0-0.16); EOSINOPHILS 4.2 %; HEMATOCRIT 33.6 % (36.0-48.0); HEMOGLOBIN 11.1 g/dL (12.0-16.0); IMMATURE GRANULOCYTES 0.2 %; IMMATURE GRANULOCYTES ABSOLUTE 0.01 10/3/uL (0.0-0.11); LYMPHOCYTES 10.2 %; LYMPHOCYTES ABSOLUTE 0.49 10/3/uL (0.67-4.30); MANUAL DIFF NO %; MEAN CORPUSCULAR HEMOGLOB 29.3 pg (26.0-34.0); MEAN CORPUSCULAR VOLUME 88.7 fL (80-100); MEAN PLATELET VOLUME 10.1 fL (9.2-13.0); MONOCYTES 13.7 %; MONOCYTES ABSOLUTE 0.66 10/3/uL (0.21-1.20); NEUTROPHILS 71.1 %; NEUTROPHILS ABSOLUTE 3.42 10/3/uL (2.02-8.40); PLATELET COUNT 127 10/3/uL (150-400); RBC DISTRIBUTION WIDTH 16.7 % (12.0-16.0); RED CELL COUNT 3.79 10/6/uL (4.0-5.6); WHITE BLOOD CELLS 4.8 10/3/uL (4.5-10.5)
[2016-08-09 04:09] LABS: ALBUMIN 3.5 G/DL (3.5-5.0); BUN (BLOOD UREA NITROGEN) 55 MG/DL (6-23); CALCIUM, SERUM 9.2 MG/DL (8.5-10.4); CHLORIDE, SERUM 104 MMOL/L (96-112); CO2 (CARBON DIOXIDE) 31 MMOL/L (24-34); CREATININE 1.86 MG/DL (0.55-1.02); GFR AFRICAN AMERICAN 31 ML/MIN (>=60); GFR NON AFRICAN AMERICAN 26 ML/MIN (>=60); GLUCOSE, SERUM 98 MG/DL (60-99); PHOSPHORUS, SERUM 3.1 MG/DL (2.5-4.5); POTASSIUM, SERUM 4.1 MMOL/L (3.5-5.3); SODIUM, SERUM 142 MMOL/L (135-148)
[2016-08-10 06:22] LABS: BASOPHILS 0.4 %; BASOPHILS ABSOLUTE 0.02 10/3/uL (0.0-0.16); EOSINOPHILS 3.4 %; EOSINOPHILS ABSOLUTE 0.19 10/3/uL (0.0-0.53); HEMATOCRIT 34.1 % (36.0-48.0); HEMOGLOBIN 11.3 g/dL (12.0-16.0); IMMATURE GRANULOCYTES 0.2 %; IMMATURE GRANULOCYTES ABSOLUTE 0.01 10/3/uL (0.0-0.11); LYMPHOCYTES 9.5 %; LYMPHOCYTES ABSOLUTE 0.53 10/3/uL (0.67-4.30); MEAN CORPUS HGB CONC 33.1 g/dL (32.0-36.0); MEAN CORPUSCULAR HEMOGLOB 29.5 pg (26.0-34.0); MEAN PLATELET VOLUME 10.8 fL (9.2-13.0); MONOCYTES 13.2 %; MONOCYTES ABSOLUTE 0.73 10/3/uL (0.21-1.20); NEUTROPHILS 73.3 %; NEUTROPHILS ABSOLUTE 4.07 10/3/uL (2.02-8.40); PLATELET COUNT 138 10/3/uL (150-400); RED CELL COUNT 3.83 10/6/uL (4.0-5.6); WHITE BLOOD CELLS 5.6 10/3/uL (4.5-10.5)
[2016-08-10 06:24] LABS: MANUAL DIFF NO %
[2016-08-10 06:37] LABS: ALBUMIN 3.6 G/DL (3.5-5.0); BUN (BLOOD UREA NITROGEN) 49 MG/DL (6-23); CALCIUM, SERUM 9.4 MG/DL (8.5-10.4); CHLORIDE, SERUM 104 MMOL/L (96-112); CO2 (CARBON DIOXIDE) 31 MMOL/L (24-34); CREATININE 1.56 MG/DL (0.55-1.02); GFR AFRICAN AMERICAN 38 ML/MIN (>=60); GFR NON AFRICAN AMERICAN 33 ML/MIN (>=60); GLUCOSE, SERUM 105 MG/DL (60-99); PHOSPHORUS, SERUM 2.7 MG/DL (2.5-4.5); POTASSIUM, SERUM 4.1 MMOL/L (3.5-5.3); SODIUM, SERUM 142 MMOL/L (135-148)
[2016-08-11 06:03] LABS: BASOPHILS 0.6 %; BASOPHILS ABSOLUTE 0.03 10/3/uL (0.0-0.16); EOSINOPHILS 4.6 %; EOSINOPHILS ABSOLUTE 0.23 10/3/uL (0.0-0.53); HEMATOCRIT 33.7 % (36.0-48.0); HEMOGLOBIN 11.2 g/dL (12.0-16.0); IMMATURE GRANULOCYTES 0.2 %; IMMATURE GRANULOCYTES ABSOLUTE 0.01 10/3/uL (0.0-0.11); LYMPHOCYTES 10.2 %; LYMPHOCYTES ABSOLUTE 0.51 10/3/uL (0.67-4.30); MEAN CORPUS HGB CONC 33.2 g/dL (32.0-36.0); MEAN CORPUSCULAR HEMOGLOB 29.5 pg (26.0-34.0); MEAN CORPUSCULAR VOLUME 88.7 fL (80-100); MEAN PLATELET VOLUME 10.2 fL (9.2-13.0); MONOCYTES 15.2 %; MONOCYTES ABSOLUTE 0.76 10/3/uL (0.21-1.20); NEUTROPHILS 69.2 %; NEUTROPHILS ABSOLUTE 3.45 10/3/uL (2.02-8.40); PLATELET COUNT 125 10/3/uL (150-400); RBC DISTRIBUTION WIDTH 16.9 % (12.0-16.0)
[2016-08-11 06:07] LABS: MANUAL DIFF NO %
[2016-08-11 06:14] LABS: A/G RATIO 1.1 (0.7-1.9); ALBUMIN 3.6 G/DL (3.5-5.0); ALKALINE PHOSPHATASE 112 U/L (45-117); BUN (BLOOD UREA NITROGEN) 50 MG/DL (6-23); CALCIUM, SERUM 9.2 MG/DL (8.5-10.4); CHLORIDE, SERUM 104 MMOL/L (96-112); CO2 (CARBON DIOXIDE) 31 MMOL/L (24-34); CREATININE 1.71 MG/DL (0.55-1.02); GFR AFRICAN AMERICAN 34 ML/MIN (>=60); GFR NON AFRICAN AMERICAN 29 ML/MIN (>=60); GLOBULIN 3.2 G/DL (2.5-4.1); GLUCOSE, SERUM 99 MG/DL (60-99); PHOSPHORUS, SERUM 3.1 MG/DL (2.5-4.5); POTASSIUM, SERUM 4.3 MMOL/L (3.5-5.3); SGOT(AST) 32 U/L (5-40); SGPT(ALT) 32 U/L (5-65); SODIUM, SERUM 139 MMOL/L (135-148); TOTAL PROTEIN 6.8 G/DL (6.0-8.5)
[2016-08-11] MEDS ORDERED: ASAB PO (11:14)
[2016-08-11] MEDS ORDERED: BIDIL20/37 PO (11:16)
[2016-08-11] MEDS ORDERED: DEMA20 PO (11:17)
[2016-11-13] MEDS ORDERED: ELIQUIS 5 MG TAB5 MG PO (14:50)
[2016-11-13] MEDS ORDERED: LIPITOR80 MG PO (14:52)
[2016-11-13] MEDS ORDERED: ISORDIL20 PO (14:53)
[2016-11-13] MEDS ORDERED: SACU1TAB PO (14:53)
[2016-11-13] MEDS ORDERED: Z100 PO (14:53)
[2016-11-13] MEDS ORDERED: DEMA20 PO (14:54)
[2016-11-13] MEDS ORDERED: COREG25 PO (14:54)
[2016-11-13] MEDS ORDERED: SPIRO25 PO (14:54)
[2016-11-13] MEDS ORDERED: APRES25 PO (14:55)
[2016-11-13] MEDS ORDERED: ASAB PO (14:55)
[2016-11-13] MEDS ORDERED: T PO (14:58)
[2016-11-13] MEDS ORDERED: NITROQUICK0.4 MG SL (14:59)
[2016-11-17] MEDS ORDERED: SPIRO25 PO (15:31)
== END 2016-08-11 13:50 | disposition home or self-care (01) | DRG 291 ==
LOC: ER 22:27 → 5NO 08-07 00:50
PROVIDERS: Emergency Medicine; Internal Medicine; Internal Medicine Cardiovascular Disease; Registered Nurse
DX: I13.0 Hypertensive heart and chronic kidney disease with heart failure and stage 1 through stage 4 chronic kidney disease, or unspecified chronic kidney disease (principal); I50.43 Acute on chronic combined systolic (congestive) and diastolic (congestive) heart failure; N17.9 Acute kidney failure, unspecified; I73.9 Peripheral vascular disease, unspecified; J44.9 Chronic obstructive pulmonary disease, unspecified; N18.3 Chronic kidney disease, stage 3 (moderate); E78.5 Hyperlipidemia, unspecified; I25.10 Atherosclerotic heart disease of native coronary artery without angina pectoris; Z95.1 Presence of aortocoronary bypass graft; Z95.2 Presence of prosthetic heart valve; Z95.810 Presence of automatic (implantable) cardiac defibrillator; I25.2 Old myocardial infarction; Z79.82 Long term (current) use of aspirin
CPT/HCPCS: 71020; 78492; 80048; 80053; 80069; 80076; 82550; 82553; 82570; 83735; 83880; 84156; 84300; 84484; 85025; 85610; 85730; 93005; 93017; 93306; 93970; 99285; A9270-GY; A9555; J1940; J2785